=== PATIENT | female | born 1975 | race Caucasian/White ===

== ENCOUNTER 2016-07-10 03:29 | Emergency (ER) | payer OTHER ==
[2016-07-10] MEDS ORDERED: HYDROmorphone 0.5 MG/0.5 ML Syringe IVPUSH ONE (04:22)
[2016-07-10] MEDS ORDERED: Sodium Chloride 0.9% 1,000 ML IV SCH (04:30)
[2016-07-10] MEDS: Ondansetron 4 MG/2 ML SDV IVPUSH ONE ×2 (04:57→04:58)
[2016-07-10 06:14] VITALS: BP 113/58
--- NOTE | 2016-07-10 06:27 | EDM.PDOC ---
ED HPI GENERAL MEDICAL PROBLEM - General Chief Complaint: Abdominal Pain Stated Complaint: ABD PAIN Time Seen by Provider: 07/10/16 04:05 Source of Information: Reports: Patient History Limitations: Reports: No Limitations - History of Present Illness INITIAL COMMENTS - FREE TEXT/NARRATIVE: pt arrived with severe lower abdomanal cramping. She was more comfortable sitting up than lying down. She had vomited in the car a couple of times. She does have her period. This woke her up about midnight and she had remained uncomfortable. Onset: Sudden Duration: Hour(s): Location: Reports: Abdomen Associated Symptoms: Reports: Nausea/Vomiting Abdominal Pain Score (Numeric/FACES): 2 - Related Data Allergies Allergy/AdvReac Type Severity Reaction Status Date / Time No Known Allergies Allergy Verified 07/10/16 03:53 Home Meds: Home Meds Multivitamins 1 tab PO DAILY 07/10/16 [History] Past Medical History HEENT History: Reports: Impaired Vision Gastrointestinal History: Reports: GERD - Infectious Disease History Infectious Disease History: Reports: Chicken Pox Social & Family History - Tobacco Use Smoking Status *Q: Never Smoker Second Hand Smoke Exposure: No - Caffeine Use Caffeine Use: Reports: Coffee, Soda - Recreational Drug Use Recreational Drug Use: No ED ROS GENERAL - Review of Systems Review Of Systems: See Below Constitutional: Reports: No Symptoms HEENT: Reports: Eye Discharge Respiratory: Reports: No Symptoms Cardiovascular: Reports: No Symptoms Endocrine: Reports: No Symptoms GI/Abdominal: Reports: Abdominal Pain, Vomiting ED EXAM, GI/ABD - Physical Exam Exam: See Below Text/Narrative:: pt woke up about midnight having crampy abdomanal pain. She had vomited twice in the car. She has not had pain like this in the past. She does have her period. Exam Limited By: No Limitations General Appearance: Alert, Moderate Distress, Other ( her pain was worse when she was lying down. ) Ears: Normal TMs Nose: Normal Inspection Throat/Mouth: Normal Inspection Respiratory/Chest: No Respiratory Distress Cardiovascular: Regular Rate, Rhythm GI/Abdominal: Other ( pt was tender over the supra pupic area. She did feel like the pain extended to her upper abdoman. ) (Female) Exam: Deferred Back Exam: Normal Inspection Extremities: Normal Inspection Neurological: Alert, Oriented, Normal Cognition Psychiatric: Normal Affect Course - Vital Signs Last Recorded V/S: Last Vital Signs Temp 38 C 07/10/16 06:13 Pulse 86 07/10/16 06:13 Resp 16 07/10/16 06:13 BP 113/58 L 07/10/16 06:13 Pulse Ox 98 07/10/16 06:13 - Orders/Labs/Meds Orders: Active Orders 24 hr Category Date Time Status Abdomen Series w Chest 1V [CR] Stat Exams 07/10/16 04:23 Taken Sodium Chloride 0.9% [Normal Saline] 1,000 ml Med 07/10/16 04:30 Active IV ASDIRECTED Medication Orders Sodium Chloride (Normal Saline) 1,000 mls @ 999 mls/hr IV ASDIRECTED BENITO Last Admin: 07/10/16 04:57 Dose: 999 mls/hr Labs: Laboratory Tests 07/10/16 07/10/16 07/10/16 Range/Units 04:26 04:26 04:26 WBC 13.6 H (4.5-11.0) K/uL RBC 4.50 (3.30-5.50) M/uL Hgb 13.6 (12.0-15.0) g/dL Hct 39.9 (36.0-48.0) % MCV 89 (80-98) fL MCH 30 (27-31) pg MCHC 34 (32-36) % Plt Count 237 (150-400) K/uL Neut % (Auto) 92 H (36-66) % Lymph % (Auto) 4 L (24-44) % [place] % (Auto) 4 (2-6) % Eos % (Auto) 0 L (2-4) % Baso % (Auto) 0 (0-1) % Sodium 140 (140-148) mmol/L Potassium 3.8 (3.6-5.2) mmol/L Chloride 102 (100-108) mmol/L Carbon Dioxide 28 (21-32) mmol/L Anion Gap 10.4 (5.0-14.0) mmol/L BUN 15 (7-18) mg/dL Creatinine 0.8 (0.6-1.0) mg/dL Est Cr Clr Drug Dosing 86.63 mL/min Estimated GFR (MDRD) > 60 (>60) Glucose 140 H (74-106) mg/dL Calcium 8.6 (8.5-10.1) mg/dL Total Bilirubin 0.8 (0.2-1.0) mg/dL AST 16 (15-37) U/L ALT 21 (12-78) U/L Alkaline Phosphatase 61 (46-116) U/L C-Reactive Protein 0.37 H (0.0-0.3) mg/dL Total Protein 7.2 (6.4-8.2) g/dL Albumin 3.8 (3.4-5.0) g/dL Globulin 3.4 (2.3-3.5) g/dL Albumin/Globulin Ratio 1.1 L (1.2-2.2) Lipase (73-393) U/L Urine Color Urine Appearance Urine pH (4.5-8.0) Ur Specific [place] (1.008-1.030) Urine Protein (NEGATIVE) mg/dL Urine Glucose (UA) (NEGATIVE) mg/dL Urine Ketones (NEGATIVE) mg/dL Urine Occult Blood (NEGATIVE) Urine Nitrite (NEGATIVE) Urine Bilirubin (NEGATIVE) Urine Urobilinogen (NORMAL) mg/dL Ur Leukocyte Esterase (NEGATIVE) Urine RBC (0-5) Urine WBC (0-5) Ur Epithelial Cells Amorphous Sediment Urine Bacteria Urine Mucus 07/10/16 07/10/16 Range/Units 04:43 05:17 WBC (4.5-11.0) K/uL RBC (3.30-5.50) M/uL Hgb (12.0-15.0) g/dL Hct (36.0-48.0) % MCV (80-98) fL MCH (27-31) pg MCHC (32-36) % Plt Count (150-400) K/uL Neut % (Auto) (36-66) % Lymph % (Auto) (24-44) % [place] % (Auto) (2-6) % Eos % (Auto) (2-4) % Baso % (Auto) (0-1) % Sodium (140-148) mmol/L Potassium (3.6-5.2) mmol/L Chloride (100-108) mmol/L Carbon Dioxide (21-32) mmol/L Anion Gap (5.0-14.0) mmol/L BUN (7-18) mg/dL Creatinine (0.6-1.0) mg/dL Est Cr Clr Drug Dosing mL/min Estimated GFR (MDRD) (>60) Glucose (74-106) mg/dL Calcium (8.5-10.1) mg/dL Total Bilirubin (0.2-1.0) mg/dL AST (15-37) U/L ALT (12-78) U/L Alkaline Phosphatase (46-116) U/L C-Reactive Protein (0.0-0.3) mg/dL Total Protein (6.4-8.2) g/dL Albumin (3.4-5.0) g/dL Globulin (2.3-3.5) g/dL Albumin/Globulin Ratio (1.2-2.2) Lipase 105 (73-393) U/L Urine Color Yellow Urine Appearance Slightly cloudy Urine pH 6.0 (4.5-8.0) Ur Specific [place] 1.020 (1.008-1.030) Urine Protein Negative (NEGATIVE) mg/dL Urine Glucose (UA) Normal (NEGATIVE) mg/dL Urine Ketones 15 H (NEGATIVE) mg/dL Urine Occult Blood Negative (NEGATIVE) Urine Nitrite Negative (NEGATIVE) Urine Bilirubin Negative (NEGATIVE) Urine Urobilinogen Normal (NORMAL) mg/dL Ur Leukocyte Esterase Negative (NEGATIVE) Urine RBC Not seen (0-5) Urine WBC 0-5 (0-5) Ur Epithelial Cells Few Amorphous Sediment Not seen Urine Bacteria Not seen Urine Mucus Moderate Meds: Medications Generic Name Dose Route Start Last Admin Trade Name Freq PRN Reason Stop Dose Admin Sodium Chloride 1,000 mls @ 999 mls/hr 07/10/16 04:30 07/10/16 04:57 Normal Saline IV 999 mls/hr ASDIRECTED BENITO Administration Discontinued Medications Generic Name Dose Route Start Last Admin Trade Name Freq PRN Reason Stop Dose Admin Hydromorphone HCl 0.5 mg 07/10/16 04:22 07/10/16 04:58 Dilaudid IVPUSH 07/10/16 04:23 0.5 mg ONETIME ONE Administration Ondansetron HCl 4 mg 07/10/16 04:22 07/10/16 04:58 Zofran IVPUSH 07/10/16 04:23 4 mg ONETIME ONE Administration - Re-Assessments/Exams Free Text/Narrative Re-Assessment/Exam: 07/10/16 06:35 flat and upright was done which did reveal alot of stool. Her wbc showed mild elevation in her wbc. her other labs looked good. Her urine looked clear. We did discuss getting a cat scan of the abdoman and she decided against this because her pain improved so much. She was given a liter of fluids, zoforan 4mg and dilaudid .5 iv. Her pain remained stable-- she was comfortable so she did go home to return if this should reoccur. 07/10/16 06:36 Departure - Departure Time of Disposition: 06:23 Disposition: Home, Self-Care 01 Condition: fair Clinical Impression: Abdominal pain, Abdominal cramping - Discharge Information Referrals: PCP,None [Primary Care Provider] - Forms: ED Department Discharge Care Plan Goals: Pt did not want any further work up at this point. pt is to return if the pain reoccurs. suggest using a laxative when she gets home --Milk of magnesia 30 cc. - My Orders Last 24 Hours: My Active Orders 07/10/16 04:23 Abdomen Series w Chest 1V [CR] Stat 07/10/16 04:30 Sodium Chloride 0.9% [Normal Saline] 1,000 ml IV ASDIRECTED - Assessment/Plan Last 24 Hours: My Active Orders 07/10/16 04:23 Abdomen Series w Chest 1V [CR] Stat 07/10/16 04:30 Sodium Chloride 0.9% [Normal Saline] 1,000 ml IV ASDIRECTED
--- NOTE | 2016-07-12 08:55 | CR ---
Abdomen Series w Chest 1V HISTORY: abdominal pain. COMPARISON: None FINDINGS: Lungs appear clear and normally aerated. Cardiomediastinal silhouette is within normal limits. No va scular redistribution or pleural fluid is seen. Bowel gas pattern is nonspecific. There is moderate fecal material in the ascending colon and rectum. No obstruction or free air is identified. No soft tissue mass, organomegaly, or abnormal calcifications are seen. Bony structures are unremarkable. IMPRESSION: 1. No acute chest abnormality identified. 2. Moderate fecal material is noted in the ascending colon and rectum. Otherwise nonspecific abdomen .
== END 2016-07-10 06:40 | disposition home or self-care (01) ==
LOC: JP.ED 03:29
DX: R10.30 Lower abdominal pain, unspecified (principal); K21.9 Gastro-esophageal reflux disease without esophagitis; Z79.899 Other long term (current) drug therapy
CPT/HCPCS: 36415; 74022; 80053; 81001; 83690; 85025; 86140; 96361; 96374; 96375; 99284; J1170; J2405; J7040